=== PATIENT | male | born 1985 | race African-American/Black ===

== ENCOUNTER 2017-06-18 15:04 | Emergency (ER) | payer SELFPAY ==
[2017-06-18] MEDS ORDERED: IBUPROFEN 600 MG TABLET PO ONE (18:29)
[2017-06-18] MEDS ORDERED: NORMAL SALINE 1000 ML 1,000 ML IV ONE (18:29)
--- NOTE | 2017-06-18 18:47 | RADIOLOGY REPORT (SQ) ---
EXAM DESCRIPTION: CHEST SINGLE VIEW COMPLETED DATE/TIME: 06/18/2017 6:38 pm REASON FOR STUDY: fever COMPARISON: None. EXAM PARAMETERS: NUMBER OF VIEWS: One view. TECHNIQUE: Single frontal radiographic view of the chest acquired. RADIATION DOSE: NA LIMITATIONS: None. FINDINGS: LUNGS AND PLEURA: No opacities, masses or pneumothorax. No pleural effusion. MEDIASTINUM AND HILAR STRUCTURES: No masses. Contour normal. HEART AND VASCULAR STRUCTURES: Heart normal in size. Normal vasculature. BONES: No acute findings. HARDWARE: None in the chest. OTHER: No other significant finding. IMPRESSION: NO ACUTE RADIOGRAPHIC FINDING IN THE CHEST. TECHNICAL DOCUMENTATION: JOB ID: [id number]
[2017-06-18 18:52] LABS: ABSOLUTE EOSINOPHILS # (AUTO) 0.2 10^3/uL (0.0-0.6); ABSOLUTE LYMPHOCYTES (AUTO) 1.6 10^3/uL (0.5-4.7); ABSOLUTE MONOCYTES (AUTO) 0.9 10^3/uL (0.1-1.4); ABSOLUTE NEUT (AUTO) 5.7 10^3/uL (1.7-8.2); BASOPHILS % (AUTO) 0.5 % (0-2); EOSINOPHILS % (AUTO) 1.8 % (0-6); HEMOGLOBIN 13.9 g/dL (13.5-17.0); HGB HCT DIFFERENCE 0.7; MEAN CORPUSCULAR HEMOGLOBIN 29.5 pg (27.0-33.4); MEAN CORPUSCULAR HGB CONC 33.8 g/dL (32.0-36.0); MEAN CORPUSCULAR VOLUME 87 fl (80-97); MONOCYTES % (AUTO) 10.7 % (3-13); RED CELL DISTRIBUTION WIDTH 13.4 % (11.5-14.0); WHITE BLOOD COUNT 8.4 10^3/uL (4.0-10.5)
[2017-06-18 19:18] LABS: ALANINE AMINOTRANSFERASE 45 U/L (21-72); ALBUMIN 4.4 g/dL (3.5-5.0); ALKALINE PHOSPHATASE 89 U/L (38-126); ANION GAP 12 (5-19); ASPARTATE AMINO TRANSFERASE 26 U/L (17-59); BILIRUBIN,DIRECT 0.3 mg/dL (0.0-0.4); BILIRUBIN,TOTAL 0.4 mg/dL (0.2-1.3); BLOOD UREA NITROGEN 14 mg/dL (7-20); CALCIUM 9.7 mg/dL (8.4-10.2); CARBON DIOXIDE 24 mmol/L (22-30); CHLORIDE 105 mmol/L (98-107); CREATININE RESULT 0.87 mg/dL (0.52-1.25); GLUCOSE 90 mg/dL (75-110); POTASSIUM 4.3 mmol/L (3.6-5.0); TOTAL PROTEIN 7.3 g/dL (6.3-8.2)
[2017-06-18] MEDS ORDERED: CEFTRIAXONE INJ 250 MG VIAL IV ONE (19:28)
[2017-06-18] MEDS ORDERED: AZITHROMYCIN 250 MG TABLET PO ONE (19:28)
--- NOTE | 2017-06-18 19:33 | ER Document Report ---
ED General - General Chief Complaint: Flu Symptoms Stated Complaint: FEVER Time Seen by Provider: 06/18/17 18:27 Notes: Patient is a 31-year-old male with a past medical history who presents with multiple complaints. His first complaint is that he feels "bad" and states "something is wrong with my body". Notes that he has had penile discharge for the past 24 hours but denies any dysuria, scrotal lesions or penile lesions. No history of similar symptoms in the past. He does admit to unprotected sex. He also notes that he has had a sore throat, sinus pressure and nasal congestion for the past 24-48 hours. He believes he is also had a fever at home has not recorded temperature. He has not tried anything to improve his symptoms and is not noted that anything worsens his symptoms. No known sick contacts. He has a history of similar upper respiratory infections in the past. He has not seen his primary care doctor regarding today's concerns. He does deny any focal abdominal pain, vomiting, diarrhea, headache, neck pain or altered mental status. No joint pain. TRAVEL OUTSIDE OF THE [place] IN LAST 30 DAYS: No - Related Data Allergies/Adverse Reactions: No Known Allergies Allergy (Unverified 06/18/17 17:11) Past Medical History - General Information source: Patient - Social History Smoking Status: Current Every Day Smoker Chew tobacco use (# tins/day): No - 1/2 ppd Frequency of alcohol use: None Drug Abuse: None Family History: Reviewed & Not Pertinent Renal/ Medical History: Denies: Hx Peritoneal Dialysis Surgical Hx: Negative Review of Systems - Review of Systems Notes: Constitutional: Negative for fever. HENT: Positive for sore throat. Eyes: Negative for visual changes. Cardiovascular: Negative for chest pain. Respiratory: Negative for shortness of breath. Gastrointestinal: Negative for abdominal pain, vomiting or diarrhea. Genitourinary: Negative for dysuria. Positive for penile discharge Musculoskeletal: Negative for back pain. Skin: Negative for rash. Neurological: Negative for headaches, weakness or numbness. 10 point ROS negative except as marked above and in HPI. Physical Exam - Vital signs Vitals: Temp Pulse Resp BP Pulse Ox 99.1 F 99 18 156/74 H 98 06/18/17 15:15 06/18/17 15:15 06/18/17 15:15 06/18/17 15:15 06/18/17 15:15 Interpretation: Hypertensive Notes: PHYSICAL EXAMINATION: GENERAL: Well-appearing, well-nourished and in no acute distress. HEAD: Atraumatic, normocephalic. EYES: Pupils equal round and reactive to light, extraocular movements intact, sclera anicteric, conjunctiva are normal. ENT: nares patent, oropharynx clear without exudates. Moist mucous membranes. NECK: Normal range of motion, supple without lymphadenopathy LUNGS: Breath sounds clear to auscultation bilaterally and equal. No wheezes rales or rhonchi. HEART: Regular rate and rhythm without murmurs ABDOMEN: Soft, nontender, normoactive bowel sounds. No guarding, no rebound. No masses appreciated. : There is a whitish discharge from the urethra. No scrotal or penile lesions. No focal testicular or epididymal tenderness. EXTREMITIES: Normal range of motion, no pitting or edema. No cyanosis. NEUROLOGICAL: No focal neurological deficits. Moves all extremities spontaneously and on command. PSYCH: Normal mood, normal affect. SKIN: Warm, Dry, normal turgor, no rashes or lesions noted. Course - Re-evaluation Re-evalutation: 06/18/17 19:29 Patient presents with feeling generally unwell and penile discharge. Patient states that he had pus expressed from his urethra today and has had multiple sexual partners and is at risk for sexual transmitted infections. Penile exam does show some purulent discharge from the urethral meatus but no additional lesions on the scrotum or penis. This is consistent with likely gonorrhea. He has no joint pain to suggest a disseminated gonococcal disease. Patient is also complaining of some viral upper respiratory symptoms including a sore throat, nonproductive cough, and generalized body aches. He has no fever, no significant lymphadenopathy and no tonsillar exudates to suggest an acute strep pharyngitis. Chest x-ray obtained in triage is clear. Abdominal exam without any focal tenderness to suggest an acute appendicitis, ascending cholangitis, or acute pancreatitis. Blood work is otherwise unremarkable. Patient does not wish to remain for STI testing and I have encouraged him to follow-up in the health department on Wednesday for a full panel of lab work including HIV. Patient is agreeable to this and is verbalized the importance of outpatient follow-up for formal STI testing. He has been treated here in the emergency room with ceftriaxone and azithromycin. At this time will discharge with return precautions and follow-up recommendations. Verbal discharge instructions given a the bedside and opportunity for questions given. Medication warnings reviewed. Patient is in agreement with this plan and has verbalized understanding of return precautions and the need for primary care follow-up in the next 24-72 hours. - Vital Signs Vital signs: Temp Pulse Resp BP Pulse Ox 98.0 F 64 18 120/73 99 06/18/17 20:22 06/18/17 20:22 06/18/17 20:22 06/18/17 20:22 06/18/17 20:22 - Laboratory Result Diagrams: 06/18/17 18:40 06/18/17 18:40 - Diagnostic Test Radiology reviewed: Image reviewed, Reports reviewed Radiology results interpreted by me: 06/18/17 19:31 Chest x-ray: No acute infiltrate or pneumothorax Discharge - Discharge Clinical Impression: Viral upper respiratory illness, Sexually transmitted infection, Penile discharge Condition: Good Disposition: HOME, SELF-CARE Additional Instructions: You need to use protection every time you have sex. Failure to do so can result in transmission of infections or unintended . You have been treated for an sexually transmitted infection (STI) today. All of your partners should be tested and treated as they are also likely to be infected. Please return if you develop abdominal pain, fever, persistent vomiting, or any other symptoms that are concerning to you. Please follow-up at the local health department for STI testing. Address: [address] [place] [address] Hours: Wed-Wed 8am-4pm Thurs 12p-4p Fri 8a-4p Your throat discomfort and congestion are most likely due to a viral infection it should resolve over the next 7-14 days. You should take [id number] guanfacine per bottle instructions to help thin the mucus. For nasal congestion : I would recommend that you get [id number]-[id number] oxymetazoline also known is afrin. Use only per bottle instructions and be sure to never use this for more than 3 days if you can develop severe rebound congestion. You may also use tylenol or ibuprofen as needed for aches and thorat discomfort. Please be sure to drink plenty of fluids and get rest. Return to the emergency department he began having difficulty breathing, chest pain, persistent vomiting, or any other symptoms that are concerning to you.
[2017-06-18 20:23] VITALS: BP 120/73
== END 2017-06-18 20:22 | disposition home or self-care (01) ==
LOC: ER 15:04
DX: A64 Unspecified sexually transmitted disease (principal); J02.8 Acute pharyngitis due to other specified organisms; B97.89 Other viral agents as the cause of diseases classified elsewhere; F17.200 Nicotine dependence, unspecified, uncomplicated; J34.89 Other specified disorders of nose and nasal sinuses; R05 Cough
CPT/HCPCS: 99284; 96361; 96365; 36415; 85025; 80053; 71010; J7030; J0696

== ENCOUNTER 2017-08-02 05:52 | Emergency (ER) | payer SELFPAY ==
[2017-08-02] MEDS ORDERED: CEFAZOLIN 1 GM/D5W RTU 1 GM/50 ML RTUPB IV ONE (06:27)
[2017-08-02] MEDS ORDERED: DIPH/PERTUSS(ACELL)/TETANUS VAC/PF 0.5 ML SYR (>=10YO) IM ONE (06:27)
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
[2017-08-02 07:34] LABS: ALANINE AMINOTRANSFERASE 36 U/L (21-72); ALBUMIN 4.8 g/dL (3.5-5.0); ALKALINE PHOSPHATASE 93 U/L (38-126); ANION GAP 18 (5-19); ASPARTATE AMINO TRANSFERASE 25 U/L (17-59); BILIRUBIN,DIRECT 0.4 mg/dL (0.0-0.4); BILIRUBIN,TOTAL 0.6 mg/dL (0.2-1.3); BLOOD UREA NITROGEN 13 mg/dL (7-20); CALCIUM 9.2 mg/dL (8.4-10.2); CARBON DIOXIDE 21 mmol/L (22-30); CHLORIDE 109 mmol/L (98-107); CREATININE RESULT 1.15 mg/dL (0.52-1.25); GLUCOSE 97 mg/dL (75-110); POTASSIUM 3.8 mmol/L (3.6-5.0); SODIUM 148.1 mmol/L (137-145); TOTAL PROTEIN 7.8 g/dL (6.3-8.2)
[2017-08-02 07:40] LABS: ABSOLUTE LYMPHOCYTES (AUTO) 0.9 10^3/uL (0.5-4.7); ABSOLUTE MONOCYTES (AUTO) 0.5 10^3/uL (0.1-1.4); ABSOLUTE NEUT (AUTO) 6.6 10^3/uL (1.7-8.2); BASOPHILS % (AUTO) 0.3 % (0-2); EOSINOPHILS % (AUTO) 0.2 % (0-6); HEMATOCRIT 42.5 % (37.9-51.0); HEMOGLOBIN 14.3 g/dL (13.5-17.0); HGB HCT DIFFERENCE 0.4; LYMPHOCYTES % (AUTO) 11.6 % (13-45); MEAN CORPUSCULAR HEMOGLOBIN 29.2 pg (27.0-33.4); MEAN CORPUSCULAR HGB CONC 33.6 g/dL (32.0-36.0); MEAN CORPUSCULAR VOLUME 87 fl (80-97); MONOCYTES % (AUTO) 6.1 % (3-13); RED BLOOD COUNT 4.89 10^6/uL (4.35-5.55); RED CELL DISTRIBUTION WIDTH 13.7 % (11.5-14.0); SEGMENTED NEUTROPHILS % (AUTO) 81.8 % (42-78); WHITE BLOOD COUNT 8.1 10^3/uL (4.0-10.5)
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
[2017-08-02 09:30] LABS: URINE BARBITURATES SCREEN NEGATIVE; URINE METHADONE SCREEN NEGATIVE; URINE OPIATES LOW NEGATIVE; URINE PHENCYCLIDINE SCREEN NEGATIVE
[2017-08-02 10:18] VITALS: BP 139/80
== END 2017-08-02 10:20 | disposition home or self-care (01) ==
LOC: ER 05:52
PROC: 0HQ0XZZ Repair Scalp Skin, External Approach (ICD-10-PCS; principal; 2017-08-02)
DX: S02.401A Maxillary fracture, unspecified side, initial encounter for closed fracture (principal); S02.92XA Unspecified fracture of facial bones, initial encounter for closed fracture; S01.01XA Laceration without foreign body of scalp, initial encounter; Y04.8XXA Assault by other bodily force, initial encounter; W54.0XXA Bitten by dog, initial encounter
CPT/HCPCS: 99284; 90471; 96365; 36415; 85025; 80053; 80307; 70450; 70486; 71260; 72125; 74177; 90715; 12002; L0120; J0690